=== PATIENT | female | born 1960 | race Caucasian/White ===

== ENCOUNTER → 2016-10-29 | Outpatient (CLI) | payer MEDICARE ==
[~2016-10-29] MED LIST: ALBUTEROL 0.5ML INH; ALBUTEROL MININEB NEB; ALBUTEROL0.83 MG/ML IH; ALBUTEROL17 GM INH; AMITIZIA; ASPIRIN81 M1; ASPIRIN81 M2; COLACE PO; COREG; COREG PO; DEXILANT60 MG PO; DIAZEPAM; DIAZEPAM PO; DIAZEPAM10 MG PO; DULCOLAX5 MG; DUONEB 2.5-0.5 M3 ML; EFFIENT10 MG; HYDROCODON-ACE1 EAC1 PO; HYDROCODONE-APA1 T30 PO; HYDROCODONE/APA1 T16 PO; IBUPROFEN800 MG PO; IMDUR PO; KLONOPIN PO; LIPITOR20 MG; MOBIC PO; NICOTINE TRANSD21 MG; NITROSTAT0.4 MG SL; NORCO 7.5/325 T1 TAB PO; PANCREASE; PANCRELIPASE 51 EACH; PREDNISONE PO; PROAIR HFA8.5 GM; PROAIR HFA8.5 GM IH; SIMVASTATIN40 MG PO; SOMA; SOMA PO; SYMBICORT INH; VICODIN ES 7.51 EACH; ZANAFLEX; ZENPEP DR 3,001 EACH; ZOCOR
--- NOTE | ~2016-10-29 | MY11 ---
[facility] A Service of [facility] RADIOLOGY TEXT RESULTS PATIENT: VAL PHILLIPS LOCATION: [facility] : 58 UNIT #: [id number] AGE: [address]: Black Scott MD SEX: F ORDER DR: [id number] [address] [address] [id number] O MR#: [id number] Acc #: [id number] NAME: VAL PHILLIPS : 1960 SEX: F STUDY DATE/TIME: 10/29/2016 13:48 UNIT: [facility] ROOM: STUDY DESCRIPTION: MY Mammogram Screening Dig Stu Attending Physician: Black Scott M.D. Referring Physician: Black Scott M.D. Ordering Physician: Black Scott M.D. Primary Care Physician: Black Scott M.D. MEDICAL IMAGING REPORT This report is preliminary unless electronic signature is present. EXAM Digital screening mammogram 10/29/2016 HISTORY 56-year-old woman left nipple discharge. No risk elevation. Annual screen. Comparison mammograms 04/29/2009, 06/25/2014 FINDINGS Digital imaging of each breast was completed utilizing screening protocol. Review includes FDA-approved CAD device. Breast parenchyma is predominantly fatty replaced. There is no interval occurring breast mass. There are no suspicious microcalcifications and no architectural deformity. IMPRESSION Negative stable mammogram. Annual screening recommended. BIRADS 1 Patients over the age of 40 are entered into a reminder system with target due date for the next mammogram. A result letter will also be sent to the patient. BIRADS: 1 - Negative Dictated by... Kulwant Cavazos M.D. THIS IS AN ELECTRONICALLY VERIFIED REPORT Kulwant Cavazos M.D. at 10/29/2016 3:35 PM Victoria TD: 10/29/2016 15:24 JOB #: [id number] [facility] A Service [facility] RADIOLOGY TEXT RESULTS PATIENT: VAL PHILLIPS LOCATION: [facility] #: [id number] : 58 UNIT #: [id number] AGE: [address]: Black Scott MD SEX: F ORDER DR: MEDICAL IMAGING REPORT Page 1 of 1
== END | disposition home or self-care (01) ==
LOC: SMAM 10-08 11:30
DX: Z12.31 Encounter for screening mammogram for malignant neoplasm of breast (principal)
CPT/HCPCS: G0202

== ENCOUNTER 2016-12-27 15:02 | Emergency (ER) | payer MEDICARE ==
--- NOTE | ~2016-12-27 | CT71 ---
[facility] A Service [facility] RADIOLOGY TEXT RESULTS PATIENT: VAL PHILLIPS LOCATION: [facility] : 58 UNIT #: [id number] AGE: [address]: Andi Arcos MD SEX: F ORDER DR: [id number] [address] [address] [id number] E MR#: [id number] Acc #: [id number] NAME: VAL PHILLIPS : 1960 SEX: F STUDY DATE/TIME: 12/27/2016 15:42 UNIT: SED ROOM: STUDY DESCRIPTION: CT Head Wo Contrast Attending Physician: Andi Arcos M.D. Ordering Physician: [id number] Alexia Arcos Primary Care Physician: Black Scott M.D. MEDICAL IMAGING REPORT This report is preliminary unless electronic signature is present. EXAM CT head without contrast INDICATION Fall on Tuesday morning, she reports pain. She had the TB stand when falling and now has bruising and swelling on the right side of the forehead. TECHNIQUE Axial CT images were obtained from vertex of the skull through skull base, no intravenous contrast material was administered. The CT exam was performed with one or more of the following radiation dose reduction techniques: automatic exposure control, adjustment of mA and/or kV according to patient size, and iterative reconstruction. FINDINGS Exam is significantly degraded by motion artifact but I am not convinced I can see any acute intracranial hemorrhage. There is no midline shift or mass effect. Visualized paranasal sinuses and mastoid air cells appear clear. No calvarial fracture is identified. I do not see any focal soft tissue abnormalities. IMPRESSION The examination is significantly degraded by motion artifact. No obvious acute intracranial hemorrhage is seen. No acute traumatic injury identified. Dictated by... Carmen Shay M.D. [facility] A Service [facility] RADIOLOGY TEXT RESULTS PATIENT: VAL PHILLIPS LOCATION: [facility] : 58 UNIT #: [id number] AGE: [address]: Andi Arcos MD SEX: F ORDER DR: THIS IS AN ELECTRONICALLY VERIFIED REPORT Carmen Shay M.D. at 12/28/2016 4:31 PM BELLA/glory TD: 12/28/2016 07:34 JOB #: [id number] MEDICAL IMAGING REPORT Page 1 of 1
--- NOTE | ~2016-12-27 | CR210 ---
[facility] A Service of [facility] RADIOLOGY TEXT RESULTS PATIENT: VAL PHILLIPS LOCATION: [facility] : 58 UNIT #: [id number] AGE: [address]: Andi Arcos MD SEX: F ORDER DR: [id number] [place] [id number] E MR#: [id number] Acc #: [id number] NAME: VAL PHILLIPS : 1960 SEX: F STUDY DATE/TIME: 12/27/2016 15:56 UNIT: SED ROOM: STUDY DESCRIPTION: CR Ribs Uni 2 View W PA Ch Lt Attending Physician: Andi Arcos M.D. Ordering Physician: Andi Arcos M.D. Primary Care Physician: Black Scott M.D. MEDICAL IMAGING REPORT This report is preliminary unless electronic signature is present. EXAM Frontal chest and left rib series. INDICATIONS Left-sided rib pain, bruising and swelling after fall on Tuesday. PROCEDURE Frontal view chest with additional views left ribs. COMPARISON None. FINDINGS Lungs clear. Mild cardiomegaly. No displaced left-sided rib fracture. IMPRESSION No displaced left-sided rib fracture. Dictated by... Shivam White M.D. THIS IS AN ELECTRONICALLY VERIFIED REPORT Shivam White M.D. at 12/28/2016 8:29 AM EED/gz TD: 12/28/2016 08:18 JOB #: [id number] MEDICAL IMAGING REPORT Page 1 of 1
[~2016-12-27 15:02] MED LIST changes: -LIPITOR20 MG
[2016-12-27] MEDS ORDERED: LIPITOR20 MG (15:09)
== END 2016-12-27 17:29 | disposition home or self-care (01) ==
LOC: SED 15:02
DX: S09.90XA Unspecified injury of head, initial encounter (principal); S20.212A Contusion of left front wall of thorax, initial encounter; Z88.5 Allergy status to narcotic agent; Z79.82 Long term (current) use of aspirin; Z79.899 Other long term (current) drug therapy; W01.0XXA Fall on same level from slipping, tripping and stumbling without subsequent striking against object, initial encounter; Y92.009 Unspecified place in unspecified non-institutional (private) residence as the place of occurrence of the external cause
CPT/HCPCS: 70450; 71100; 99284

== ENCOUNTER → 2017-02-04 | Outpatient (CLI) | payer MEDICARE, OTHER ==
[~2017-02-04] MED LIST changes: +LIPITOR20 MG
== END | disposition home or self-care (01) ==
LOC: CECH 08:36
DX: R06.02 Shortness of breath (principal); I34.0 Nonrheumatic mitral (valve) insufficiency; I36.1 Nonrheumatic tricuspid (valve) insufficiency
CPT/HCPCS: 93306

== ENCOUNTER → 2017-02-04 | Outpatient (CLI) | payer MEDICARE, OTHER ==
--- NOTE | ~2017-02-04 | TH ---
Unit #: [id number] #: [id number] Patient: VAL PHILLIPS [id number] [address] [address] [id number] O MR#: [id number] NAME: VAL PHILLIPS : 1960 SEX: F STUDY DATE/TIME: 02/04/2017 UNIT: [facility] ROOM: STUDY DESCRIPTION: Attending Physician: Yan Boogie M.D. Referring Physician: Yan Boogie M.D. Primary Care Physician: Black Scott M.D. CARDIOLOGY REPORT EXAM Lexiscan Cardiolite stress test, nuclear portion. PROCEDURE Using technetium 99m labeled Cardiolite, rest and stress SPECT images were obtained. Multiple SPECT images were obtained in various views including horizontal and vertical long axis and short axis views of the left ventricle. Images were obtained by gated SPECT method. The patient was administered 11.16 mCi of Cardiolite at rest. Patient was administered 30.4 mCi of Cardiolite after Lexiscan infusion was completed. On the stress images, there is a small area of mild decreased isotope activity in the anteroseptal wall. The rest images showed normal perfusion. Comparing rest and stress images, a small area of possible stress-induced ischemia involving the anteroseptal wall of the left ventricle cannot be ruled out. The left ventricular ejection fraction is calculated to be 58%. There is no focal wall motion abnormality seen. CONCLUSION 1. A very small area of possible stress-induced ischemia involving the anteroseptal wall of the left ventricle cannot be ruled out. 2. The left ventricular ejection fraction is calculated to be 58%. 3. There is no focal wall motion abnormality seen. 4. The left ventricular size is small. 5. Mildly abnormal Lexiscan Cardiolite stress test. Clinical correlation is requested. Dictated by... John Solis TD: 02/04/2017 15:25 JOB #: [id number] CC: Yan Boogie M.D. Unit #: [id number] #: [id number] Patient: VAL PHILLIPS CARDIOLOGY REPORT Page 1 of 1 X Delfina Abreu MD <ELECTRONICALLY SIGNED> 02/24/17 [facility] CARDIOLOGY REPORT
== END | disposition home or self-care (01) ==
LOC: CNUC 07:00
DX: I20.9 Angina pectoris, unspecified (principal); R94.39 Abnormal result of other cardiovascular function study
CPT/HCPCS: 78452; 93017; 93306; A9500; J2785

== ENCOUNTER → 2017-02-24 | Outpatient (CLI) | payer MEDICARE, OTHER ==
--- NOTE | ~2017-02-24 | US37 ---
[facility] A Service of [facility] & [facility] RADIOLOGY TEXT RESULTS PATIENT: VAL PHILLIPS LOCATION: [facility] : 58 UNIT #: [id number] AGE: [address]: Yan Boogie MD SEX: F ORDER DR: [id number] [facility] [address] [place], [place] [address] [id number] O MR#: [id number] [facility] #: [id number] NAME: VAL PHILLIPS : 1960 SEX: F STUDY DATE/TIME: 02/24/2017 12:47 UNIT: [facility] ROOM: STUDY DESCRIPTION: US Carotid W/Doppler Bilateral Attending Physician: Yan Boogie M.D. Referring Physician: Yan Boogie M.D. Ordering Physician: Yan Boogie M.D. Primary Care Physician: Black Scott M.D. MEDICAL IMAGING REPORT This report is preliminary unless electronic signature is present EXAM Bilateral carotid duplex HISTORY Syncope x1 year intermittent, right upper extremity x2 months FINDINGS There is patent flow seen throughout the right common carotid, internal carotid and external carotid arteries. At the right carotid bifurcation, there is focal heterogeneous and irregular plaque, but limited to the bifurcation. The right common carotid artery peak velocity is 60 cm/second. The right internal carotid artery peak systolic/end diastolic velocities are: Proximal 55/27 cm/second, mid 62/34 cm/second, distal 63/31 cm/second. The right external carotid artery has a peak velocity of 81 cm/second, vertebral artery 39 cm/second. The right ICA:CCA is 1.05. There is patent flow seen throughout the left common carotid, internal carotid and external carotid arteries. The left carotid bifurcation has irregular, heterogeneous, echogenic plaque. The left common carotid artery peak velocity is 50 cm/second. The left internal carotid artery peak systolic/end diastolic velocities are: Proximal 56/29 cm/second, mid 66/36 cm/second, distal 54/29 cm/second. The left external carotid artery peak velocity is 78 cm/second, vertebral artery 50 cm/second. The left ICA:CCA is 1.3. IMPRESSION 1. The right carotid artery has mild atherosclerosis, which is not hemodynamically significant by duplex criteria (less than 50%). 2. The left carotid artery has mild atherosclerosis, which is not hemodynamically significant by duplex criteria (less than 50). 3. Vertebral flow is antegrade bilaterally. [facility] A Service of [facility] & [facility] RADIOLOGY TEXT RESULTS PATIENT: VAL PHILLIPS LOCATION: [facility] : 58 UNIT #: [id number] AGE: [address]: Yan Boogie MD SEX: F ORDER DR: Dictated by... Fantasma Cherry M.D. THIS IS AN ELECTRONICALLY VERIFIED REPORT Fantasma Cherry M.D. at 02/25/2017 5:25 PM AC/raghu TD: 02/24/2017 20:30 JOB #: [id number] MEDICAL IMAGING REPORT Page 1 of 1 COPY
[2017-02-24 13:32] LABS: BASOPHIL# 0.1 X10e3 (0-0.3); BASOPHIL% 1.5 % (0-2.5); EOSINOPHIL# 0.2 X10e3 (0-0.7); EOSINOPHIL% 3.3 % (0.0-7.0); HEMATOCRIT 42.9 % (35.0-45.0); HEMOGLOBIN 14.6 gm/dL (12.0-16.0); LYMPHOCYTE# 2.4 X10e3 (1.0-3.5); LYMPHOCYTE% 35.2 % (17.0-45.0); MEAN CELL VOLUME 97.9 FL (83-96); MEAN CORPUSCULAR HEMOGLOBIN 33.4 PG (28-34); MEAN CORPUSCULAR HGB CONC 34.1 g/dL (30-36); MEAN PLATELET VOLUME 7.2 FL (6.5-11.5); MONOCYTE# 0.5 X10e3 (0-1.0); NEUTROPHIL# 3.6 X10e3 (1.5-7.1); PLATELET COUNT 223 X10e3 (140-420); RED BLOOD COUNT 4.38 X10e (3.90-5.30); RED CELL DISTRIBUTION WIDTH 13.9 % (11.0-15.5); WHITE BLOOD COUNT 6.8 X10e3 (4.0-10.5)
[2017-02-24 13:37] LABS: DIFF IND NO
[2017-02-24 15:05] LABS: BILIRUBIN,TOTAL 0.4 mg/dL (0.2-2.0); BUN/CREATININE RATIO 33.33; CALCIUM SERUM 8.9 mg/dL (8.4-10.2); CREATININE SERUM 0.6 mg/dL (0.6-1.4); GLOM FILT RATE Estimated 101.2 mL/min (>60); MAGNESIUM 1.9 mg/dL (1.6-3.0); POTASSIUM 4.9 mmol/L (3.5-5.1)
== END | disposition home or self-care (01) ==
LOC: CNIV 12:03
DX: R55 Syncope and collapse (principal); E78.5 Hyperlipidemia, unspecified; I65.23 Occlusion and stenosis of bilateral carotid arteries
CPT/HCPCS: 36415; 80053; 80061; 83735; 85025; 93880